=== PATIENT | female | born 1995 | race Caucasian/White ===

== ENCOUNTER 2017-07-12 13:12 | Emergency (ER) | payer OTHER ==
[2017-07-12 13:19] VITALS: RESP 16; TEMP 98.6
[2017-07-12] MEDS ORDERED: MAG HYDROX/AL HYDROX/SIMETH 30 ML UDCUP PO ONE (13:54)
[2017-07-12] MEDS ORDERED: HYOSCYAMINE SULFATE 0.125 MG TAB PO ONE (13:54)
[2017-07-12] MEDS ORDERED: LIDOCAINE 2% VISCOUS 15 ML UDCUP PO ONE (13:54)
--- NOTE | 2017-07-12 13:54 | EDPHY ---
General Narrative: CHIEF COMPLAINT: Throat pain, chest pain HISTORY OF PRESENT ILLNESS: Patient complains of 1 day history of throat and chest pain. She feels as though it is hard to swallow. She complains that is deep in the throat and not in the oropharynx. [id number]. Worse with intake by mouth. Did ingest moderate amount of alcohol last night. It radiates into the chest. Described as a burning pain. She feels the may be reflux. She has no actual chest pain that is exertional. No shortness of breath. No trauma or injury. No lower extremity erythema edema or pain. No upper extremity erythema edema pain. No neck pain or stiffness. No fever chills. No headache. No nausea or vomiting. No other associated complaints or modifying factors. REVIEW OF SYSTEMS: Ten systems reviewed and are negative unless otherwise noted in the HPI PCP: None locally. She lives in [place] SPECIALISTS: None PAST MEDICAL HISTORY: None PAST SURGICAL HISTORY: Tonsillectomy remotely SOCIAL HISTORY: Occasional smoker. Occasional alcohol position marijuana use. She is a graduate of [employer]. She traveled here for the weekend for home coming from [place] FAMILY HISTORY: Noncontributory EXAMINATION General Appearance: Alert, no distress Head: normocephalic, atraumatic Eyes: Pupils equal and round, no conjunctival pallor or injection ENT, Mouth: Mucous membranes moist. Uvula midline. Tonsils surgically absent. Airway is widely patent. There is minimal erythema. No exudate. Neck: Normal inspection, supple, non-tender. Midline trachea. Normal palpation of the thyroid Respiratory: Lungs are clear to auscultation. No wheezing, rhonchi or crackles Cardiovascular: Regular rate and rhythm. No murmur Gastrointestinal: Abdomen is soft and nondistended. Back: non-tender, no bony abnormalities Neurological: A&O, nonfocal, normal gait Skin: Warm and dry, no rash Extremities: Nontender, no pedal edema Psychiatric: Mood and affect normal DIFFERENTIAL DIAGNOSES: Including but not limited to GERD, esophagitis, pharyngitis, gastritis, peptic ulcer disease, pneumonia MDM: 1:55 p.m. Throat and lower esophageal pain 2 days duration. This is after drinking heavily last night. She has no chest pain. No exertional pain. No shortness of breath. Vital signs stable. I have ordered GI cocktail, chest x-ray and strep swab. 3:15 p.m. Rapid strep test is negative. She is feeling significantly better after GI cocktail. Chest x-ray is unremarkable for any acute findings. Question air trapping or wheezing, but this does not fit her clinical picture. She has no wheezing. She is not a smoker. I feel this may be related to reflux. She has no shortness of breath. No pleuritic pain. She has no lower extremity erythema edema or pain. She has traveled recently but is PERC negative. On discharge home with Carafate and PPI. She will follow up with her physician back home in [place] when she returns are tomorrow. Report back to the emergency department for any chest pain with exertion, pleuritic chest pain, shortness of breath, extremity erythema edema or pain. - History Smoking Status: Never smoked - Objective Vital Signs: Initial Vital Signs Temperature (C) 98.6 F 07/12/17 13:17 Heart Rate 88 07/12/17 13:17 Respiratory Rate 16 07/12/17 13:17 Blood Pressure 116/74 07/12/17 13:17 O2 Sat (%) 98 07/12/17 13:17 O2 Delivery Mode Room Air Allergies/Adverse Reactions: Sulfa (Sulfonamide Antibiotics) Allergy (Verified 11/07/14 08:57) Home Medications: Medication Instructions Recorded Ethinyl Estradiol/Drospirenone 11/07/14 [Bree 28 Tablet] Famotidine [Pepcid 20 MG (*)] 20 mg PO BID #20 tab 07/12/17 Sucralfate [Carafate 1gm/10ml Oral 1 gm PO QID #240 ml 07/12/17 Liquid (*)] Departure - Departure Disposition: Home, Routine, Self-Care Clinical Impression: Esophagitis Pharyngitis Qualifiers: Pharyngitis/tonsillitis etiology: unspecified etiology Qualified Code(s): J02.9 - Acute pharyngitis, unspecified Condition: Good Instructions: Esophagitis (ED), Gastroesophageal Reflux Disease (ED) Additional Instructions: 1. Medications as prescribed as needed 2. Follow up with primary care physician in [place] 3. Return to ED for any exertional chest pain, chest pain with inspiration, shortness of breath, pain in the arms or legs, redness in the arms or legs, swelling in the arms or legs Referrals: ELEAZAR PELAEZ [Other] - As per Instructions Prescriptions: Famotidine [Pepcid 20 MG (*)] 20 mg PO BID #20 tab Sucralfate [Carafate 1gm/10ml Oral Liquid (*)] 1 gm PO QID #240 ml
[2017-07-12] MEDS ORDERED: FAMOTIDINE 20 MG TAB PO ONE (13:55)
[2017-07-12 15:27] VITALS: BP 114/74; PULSE 82; O2SAT 97
== END 2017-07-12 15:27 | disposition home or self-care (01) ==
DX: K20.9 Esophagitis, unspecified (principal); J20.9 Acute bronchitis, unspecified; F17.200 Nicotine dependence, unspecified, uncomplicated